=== PATIENT | male | born 1950 | race Hispanic/Latino ===

== ENCOUNTER 2023-09-01 14:14 | Outpatient (CLI) | payer MEDICARE ==
[2023-09-01 16:09] LABS: Anion Gap 13 mmol/L (10-20); BUN (Urea Nitrogen) 22 mg/dL (8.4-25.7); Calc. Creatinine Clearance 0 mL/min (70-130); Calcium 9.3 mg/dL (7.8-10.44); Carbon Dioxide 23 mmol/L (23-31); Chloride 109 mmol/L (98-107); Estimated GFR 85; Glucose 106 mg/dL (83-110); Potassium 4.3 mmol/L (3.5-5.1); Sodium 141 mmol/L (136-145)
[2023-09-01 16:10] LABS: #Basophils 0.1 10x3/uL (0.0-0.2); #Eosinphils 1.5 10x3/uL (0.0-0.5); #Neutrophils 4.7 10x3/uL (1.5-8.4); %Eosinophils 12.6 % (0.0-6.0); %Lymphocytes 37.9 % (18.0-47.0); %Monocytes 8.2 % (0.0-10.0); %Neutrophils 39.9 % (40.0-75.0); Hematocrit 49.4 % (38.8-50.0); Hemoglobin 16.5 g/dL (13.5-17.5); Mean Corpuscular HGB CONC 33.4 g/dL (32.0-36.0); Mean Corpuscular Volume 86.8 fl (81.2-95.1); Mean Platelet Volume 9.5 fl (7.4-10.4); Platelet Count 338 10x3/uL (150-450); RBC Distribution Width 11.9 % (11.5-14.5); Red Blood Cell (RBC) Count 5.69 10x6/uL (4.32-5.72); White Blood Cell (WBC) Count 11.8 10x3/uL (3.5-10.5)
== END 2023-09-01 14:15 | disposition home or self-care (01) ==
LOC: LABBT 14:14
PROVIDERS: ATTEND Specialist
DX: Z01.818 Encounter for other preprocedural examination (principal); K43.2 Incisional hernia without obstruction or gangrene
CPT/HCPCS: 71046; 80048; 85025; 93005; 93010

== ENCOUNTER 2023-09-05 13:11 | Emergency (ER) | payer MEDICARE | END 2023-09-05 14:08 | disposition home or self-care (01) | LOC: ERS 13:11 | DX: S30.821A Blister (nonthermal) of abdominal wall, initial encounter (principal); L23.1 Allergic contact dermatitis due to adhesives; Z75.8 Other problems related to medical facilities and other health care | CPT/HCPCS: 99283 ==